=== PATIENT | male | born 1980 | race Caucasian/White ===

== ENCOUNTER 2023-06-20 01:49 | Emergency (ER) | payer SELFPAY ==
[~2023-06-20] VITALS: Ht 175.3 cm; Wt 63.0 kg
[2023-06-20 01:54] VITALS: BP 105/68
[2023-06-20 02:00] VITALS: BP 102/71
[2023-06-20 02:15] VITALS: BP 111/84
[2023-06-20 02:30] VITALS: BP 116/76
[2023-06-20 02:33] VITALS: BP 116/74
== END 2023-06-20 02:35 | disposition home or self-care (01) | DRG 605 ==
LOC: ED 01:49
PROC: 0HQFXZZ Repair Right Hand Skin, External Approach (ICD-10-PCS; principal; 2023-06-20)
DX: S61.411A Laceration without foreign body of right hand, initial encounter (principal); X99.9XXA Assault by unspecified sharp object, initial encounter; Y93.89 Activity, other specified; Y92.009 Unspecified place in unspecified non-institutional (private) residence as the place of occurrence of the external cause

== ENCOUNTER 2023-06-28 10:43 | Emergency (ER) | payer OTHER ==
[~2023-06-28] VITALS: Ht 185.4 cm; Wt 78.0 kg
[2023-06-28] MEDS ORDERED: CEFDINIR300 MG PO (10:55)
[2023-06-28] MEDS ORDERED: BACTRIM DS1 TAB PO (10:55)
[2023-06-28] MEDS ORDERED: MUPIROCIN2 % EX (10:55)
[2023-06-28] MEDS ORDERED: TRAMADOL HYDROC50 M1 PO (10:55)
[2023-06-28 11:07] VITALS: BP 124/88
[2023-06-28 11:35] VITALS: BP 124/88
== END 2023-06-28 11:38 | disposition home or self-care (01) ==
LOC: ED 10:43
DX: S61.411D Laceration without foreign body of right hand, subsequent encounter (principal); F17.200 Nicotine dependence, unspecified, uncomplicated; X58.XXXD Exposure to other specified factors, subsequent encounter